=== PATIENT | female | born 1935 | race Caucasian/White ===

== ENCOUNTER 2017-03-04 14:31 | Emergency (ER) | payer MEDICARE, OTHER ==
--- NOTE | 2017-03-04 14:47 | ED ---
General Adult HPI - General Source: RN notes reviewed, old records reviewed <Marcus Serna - Last Filed: 03/04/17 16:19> <Spencer Bhakta - Last Filed: 03/04/17 18:15> - General Stated complaint: Poss UTI Time Seen by Provider: 03/04/17 14:34 - History of Present Illness Initial comments: This is a 81-year-old female to the ER for evaluation regarding weakness. Patient's poor historian secondary to underlying dementia. Patient coming in for weakness and decreased activity level. Patient's coming from adult foster care. Patient is being treated for urinary tract infection. Family states patient was initially improving, she has no recent change in medications, patient's symptoms and began to progress to the worse, patient has no nausea vomiting or diarrhea. No fevers (Marcus Serna) - Related Data Home Medications Medication Instructions Recorded Confirmed Cholecalciferol [Vitamin D3] 2,000 unit PO DAILY@1630 06/04/14 03/04/17 Levothyroxine Sodium [Synthroid] 75 mcg PO MOTUTHFRSA@0800 06/04/14 03/04/17 amLODIPine [Norvasc] 5 mg PO DAILY@0800 06/04/14 03/04/17 Amoxicillin 500 mg PO BID@0800,1630 03/04/17 03/04/17 Hydrocortisone [Cortef] 10 mg PO BID@0800,1630 03/04/17 03/04/17 L.acidoph,Paracasei, B.lactis 1 cap PO DAILY@0800 03/04/17 03/04/17 [Probiotic] LORazepam [Ativan] 0.5 mg PO TID PRN 03/04/17 03/04/17 Levothyroxine Sodium [Synthroid] 150 mcg PO SUWE@0800 03/04/17 03/04/17 Allergies Allergy/AdvReac Type Severity Reaction Status Date / Time codeine Allergy Unknown Verified 03/04/17 15:01 Childhood Milk Containing Products Allergy Unknown Verified 03/04/17 15:01 [Dairy] Review of Systems ROS Other: All systems not noted in ROS Statement are negative. <Marcus Serna - Last Filed: 03/04/17 16:19> ROS Other: All systems not noted in ROS Statement are negative. <Spencer Bhakta - Last Filed: 03/04/17 18:15> ROS Statement: Those systems with pertinent positive or pertinent negative responses have been documented in the HPI. Past Medical History Past Medical History: Cancer, Dementia, Osteoarthritis (OA), Renal Disease, Thyroid Disorder Additional Past Medical History / Comment(s): pituitary gland tumor, short term memory loss, bowel tumor. blindness rt eye, carlotta grindstone, diverticulitis, colon ca, incont of urine, History of Any Multi-Drug Resistant Organisms: None Reported Past Surgical History: Appendectomy, Bowel Resection, Tonsillectomy Additional Past Surgical History / Comment(s): bowel resection d/r cancer, carlotta shoulder sx Past Anesthesia/Blood Transfusion Reactions: No Reported Reaction Past Psychological History: No Psychological Hx Reported Smoking Status: Former smoker Past Alcohol Use History: Rare Additional Past Alcohol Use History / Comment(s): quit in Past Drug Use History: None Reported - Past Family History Father Family Medical History: Cancer Mother Family Medical History: Cancer Sister(s) Family Medical History: Cancer (Breast) <Marcus Serna - Last Filed: 03/04/17 16:19> General Exam General appearance: alert, in no apparent distress Head exam: Present: atraumatic, normocephalic, normal inspection Eye exam: Present: normal appearance, PERRL, EOMI. Absent: scleral icterus, conjunctival injection, periorbital swelling ENT exam: Present: normal exam, mucous membranes moist Neck exam: Present: normal inspection. Absent: tenderness, meningismus, lymphadenopathy Respiratory exam: Present: normal lung sounds bilaterally. Absent: respiratory distress, wheezes, rales, rhonchi, stridor Cardiovascular Exam: Present: regular rate, normal rhythm, normal heart sounds. Absent: systolic murmur, diastolic murmur, rubs, gallop, clicks GI/Abdominal exam: Present: soft, normal bowel sounds. Absent: distended, tenderness, guarding, rebound, rigid Extremities exam: Present: normal inspection, full ROM, normal capillary refill. Absent: tenderness, pedal edema, joint swelling, calf tenderness Back exam: Present: normal inspection Neurological exam: Present: alert, oriented X3, CN II-XII intact Psychiatric exam: Present: normal affect, normal mood Skin exam: Present: warm, dry, intact, normal color. Absent: rash <Marcus Serna - Last Filed: 03/04/17 16:19> Course <Marcus Serna - Last Filed: 03/04/17 16:19> <Spencer Bhakta - Last Filed: 03/04/17 18:15> Vital Signs 03/04/17 03/04/17 03/04/17 14:35 15:45 16:32 Temperature 99.3 F 98.6 F Pulse Rate 90 90 89 Respiratory 16 16 16 Rate Blood Pressure 141/65 128/69 159/74 O2 Sat by Pulse 98 97 97 Oximetry - Reevaluation(s) Reevaluation #1: 03/04/17 16:20 Patient's medical records for further review (Marcus Serna) EKG Findings - EKG Comments: EKG Findings:: EKG shows normal sinus rhythm rate of 89, TN 144, QRS 74, QTc 467 <Marcus Serna - Last Filed: 03/04/17 16:19> Medical Decision Making - Lab Data Result diagrams: 03/04/17 15:09 03/04/17 15:09 <Marcus Serna - Last Filed: 03/04/17 16:19> - Lab Data Result diagrams: 03/04/17 15:09 03/04/17 15:09 - Radiology Data Radiology results: report reviewed (I did review the imaging and reports no acute findings.), image reviewed <Spencer Bhakta - Last Filed: 03/04/17 18:15> - Medical Decision Making I did discuss findings with the patient family members or present was able ambulate with assistance she did need to be directed on what to do with respect to standing and sitting however. After discussion with the family patient be returned to the [facility] home. X-rays and labs are within normal limits (Spencer Bhakta) - Lab Data Lab Results 03/04/17 03/04/17 03/04/17 Range/Units 15:09 15:09 15:09 WBC 8.2 (3.8-10.6) k/uL RBC 4.65 (3.80-5.40) m/uL Hgb 13.4 (11.4-16.0) gm/dL Hct 40.5 (34.0-46.0) % MCV 87.2 (80.0-100.0) fL MCH 28.9 (25.0-35.0) pg MCHC 33.2 (31.0-37.0) g/dL RDW 13.5 (11.5-15.5) % Plt Count 332 (150-450) k/uL Neutrophils % 68 % Lymphocytes % 22 % Monocytes % 5 % Eosinophils % 2 % Basophils % 1 % Neutrophils # 5.6 (1.3-7.7) k/uL Lymphocytes # 1.8 (1.0-4.8) k/uL Monocytes # 0.4 (0-1.0) k/uL Eosinophils # 0.2 (0-0.7) k/uL Basophils # 0.1 (0-0.2) k/uL Sodium 140 (137-145) mmol/L Potassium 3.9 (3.5-5.1) mmol/L Chloride 106 (98-107) mmol/L Carbon Dioxide 26 (22-30) mmol/L Anion Gap 8 mmol/L BUN 11 (7-17) mg/dL Creatinine 0.91 (0.52-1.04) mg/dL Est GFR (MDRD) Af Amer >60 (>60 ml/min/1.73 sqM) Est GFR (MDRD) Non-Af 59 (>60 ml/min/1.73 sqM) Glucose 129 H (74-99) mg/dL Calcium 9.2 (8.4-10.2) mg/dL Phosphorus 4.0 (2.5-4.5) mg/dL Magnesium 2.0 (1.6-2.3) mg/dL Total Bilirubin 0.3 (0.2-1.3) mg/dL AST 32 (14-36) U/L ALT 46 (9-52) U/L Alkaline Phosphatase 71 (38-126) U/L Total Creatine Kinase 70 (30-135) U/L CK-MB (CK-2) 1.2 (0.0-2.4) ng/mL CK-MB (CK-2) Rel Index 1.7 Troponin I <0.012 (0.000-0.034) ng/mL Total Protein 6.6 (6.3-8.2) g/dL Albumin 3.9 (3.5-5.0) g/dL TSH 0.108 L (0.465-4.680) mIU/L Urine Color Urine Appearance (Clear) Urine pH (5.0-8.0) Ur Specific [place] (1.001-1.035) Urine Protein (Negative) Urine Glucose (UA) (Negative) Urine Ketones (Negative) Urine Blood (Negative) Urine Nitrite (Negative) Urine Bilirubin (Negative) Urine Urobilinogen (<2.0) mg/dL Ur Leukocyte Esterase (Negative) Influenza Type A RNA (Not Detectd) Influenza Type B (PCR) (Not Detectd) 03/04/17 03/04/17 Range/Units 15:18 16:30 WBC (3.8-10.6) k/uL RBC (3.80-5.40) m/uL Hgb (11.4-16.0) gm/dL Hct (34.0-46.0) % MCV (80.0-100.0) fL MCH (25.0-35.0) pg MCHC (31.0-37.0) g/dL RDW (11.5-15.5) % Plt Count (150-450) k/uL Neutrophils % % Lymphocytes % % Monocytes % % Eosinophils % % Basophils % % Neutrophils # (1.3-7.7) k/uL Lymphocytes # (1.0-4.8) k/uL Monocytes # (0-1.0) k/uL Eosinophils # (0-0.7) k/uL Basophils # (0-0.2) k/uL Sodium (137-145) mmol/L Potassium (3.5-5.1) mmol/L Chloride (98-107) mmol/L Carbon Dioxide (22-30) mmol/L Anion Gap mmol/L BUN (7-17) mg/dL Creatinine (0.52-1.04) mg/dL Est GFR (MDRD) Af Amer (>60 ml/min/1.73 sqM) Est GFR (MDRD) Non-Af (>60 ml/min/1.73 sqM) Glucose (74-99) mg/dL Calcium (8.4-10.2) mg/dL Phosphorus (2.5-4.5) mg/dL Magnesium (1.6-2.3) mg/dL Total Bilirubin (0.2-1.3) mg/dL AST (14-36) U/L ALT (9-52) U/L Alkaline Phosphatase (38-126) U/L Total Creatine Kinase (30-135) U/L CK-MB (CK-2) (0.0-2.4) ng/mL CK-MB (CK-2) Rel Index Troponin I (0.000-0.034) ng/mL Total Protein (6.3-8.2) g/dL Albumin (3.5-5.0) g/dL TSH (0.465-4.680) mIU/L Urine Color Yellow Urine Appearance Clear (Clear) Urine pH 5.5 (5.0-8.0) Ur Specific [place] 1.013 (1.001-1.035) Urine Protein Negative (Negative) Urine Glucose (UA) Negative (Negative) Urine Ketones Negative (Negative) Urine Blood Negative (Negative) Urine Nitrite Negative (Negative) Urine Bilirubin Negative (Negative) Urine Urobilinogen <2.0 (<2.0) mg/dL Ur Leukocyte Esterase Negative (Negative) Influenza Type A RNA Not Detected (Not Detectd) Influenza Type B (PCR) Not Detected (Not Detectd) Disposition <Marcus Serna - Last Filed: 03/04/17 16:19> <Spencer Bhakta - Last Filed: 03/04/17 18:15> Clinical Impression: Dementia Disposition: HOME SELF-CARE Condition: Good Instructions: Dementia (ED) Referrals: Kat Meraz MD [Primary Care Provider] - 1-2 days
[2017-03-04] MEDS ORDERED: SODIUM CHLORIDE 0.9% 500 ML IV STA (14:56)
[2017-03-04] MEDS ORDERED: SODIUM CHLORIDE 0.9% 1,000 ML IV STA (14:56)
[2017-03-04 15:16] VITALS: RESP 16
[2017-03-04 15:23] LABS: Basophils # (A) 0.1 k/uL (0-0.2); Basophils % (A) 1 %; CH 29.5; Eosinophils # (A) 0.2 k/uL (0-0.7); Eosinophils % (A) 2 %; HCT 40.5 % (34.0-46.0); HDW 2.65; HGB 13.4 gm/dL (11.4-16.0); Luc # (Auto) 0.17; Luc % (Auto) 2; Lymphocytes # (A) 1.8 k/uL (1.0-4.8); Lymphocytes % (A) 22 %; MCH 28.9 pg (25.0-35.0); MCHC 33.2 g/dL (31.0-37.0); MCV 87.2 fL (80.0-100.0); Mean Platelet Volume 7.1; Monocytes # (A) 0.4 k/uL (0-1.0); Monocytes % (A) 5 %; Neutrophils # (A) 5.6 k/uL (1.3-7.7); Neutrophils % (A) 68 %; RBC 4.65 m/uL (3.80-5.40); RDW 13.5 % (11.5-15.5); WBC 8.2 k/uL (3.8-10.6); WBC (Perox) 8.22
[2017-03-04 15:32] LABS: ALT 46 U/L (9-52); AST 32 U/L (14-36); Alkaline Phosphatase 71 U/L (38-126); Anion Gap 8 mmol/L; Blood Urea Nitrogen 11 mg/dL (7-17); Calcium 9.2 mg/dL (8.4-10.2); Carbon Dioxide 26 mmol/L (22-30); Chloride 106 mmol/L (98-107); Glucose 129 mg/dL (74-99); Non-African American GFR(MDRD) 59 (>60 ml/min/1.73 sqM); Potassium 3.9 mmol/L (3.5-5.1); Sodium 140 mmol/L (137-145); Total Bilirubin 0.3 mg/dL (0.2-1.3); Total Protein 6.6 g/dL (6.3-8.2)
[2017-03-04 15:41] LABS: Creatine Kinase 70 U/L (30-135)
[2017-03-04 15:53] LABS: Creatine Kinase MB 1.2 ng/mL (0.0-2.4); Troponin I <0.012 ng/mL (0.000-0.034)
--- NOTE | 2017-03-04 16:01 | XR ---
EXAMINATION TYPE: XR chest 2V DATE OF EXAM: 03/04/2017 COMPARISON: 12/21/2012 HISTORY: 81-year-old female with weakness TECHNIQUE: PA and lateral views FINDINGS: The cardiomediastinal silhouette, aorta, and pulmonary vasculature are within normal limits. Mild int erstitial prominence is stable, likely chronic senescent change. Otherwise, lungs and pleural spaces are clear. Surgical changes of the right shoulder. IMPRESSION: Chronic changes without acute cardiopulmonary process.
[2017-03-04 16:34] VITALS: BP 159/74; PULSE 89; TEMP 98.6
[2017-03-04 16:46] LABS: Appearance,Urine Clear (Clear); Bilirubin,Urine Negative (Negative); Glucose,Urine (UA) Negative (Negative); Ketones,Urine Negative (Negative); Leukocyte Esterase,Urine Negative (Negative); Nitrite,Urine Negative (Negative); PH, Urine 5.5 (5.0-8.0); Protein,Urine Negative (Negative); Specific Gravity,Urine 1.013 (1.001-1.035); UA Billing (MACRO vs. MICRO) CHEM; Urobilinogen,Urine <2.0 mg/dL (<2.0)
--- NOTE | 2017-03-04 17:16 | CT ---
EXAMINATION TYPE: CT brain wo con DATE OF EXAM: 03/04/2017 COMPARISON: MRI 01/27/2011 HISTORY: 81-year-old female with a pain, confusion, altered mental status. TECHNIQUE: Examination was done in axial plane without intravenous contrast. Coronal and sagittal r econstructions performed. CT DLP: 809.2 mGycm Automated exposure control for dose reduction was used. FINDINGS: There is no evidence of acute intracranial hemorrhage, acute ischemic changes, mass, mass-effect, or extra-axial fluid collection. There is no effacement of cerebral sulci or basal subarachnoid cister ns. Chanel ratio is calculated at 0.39. There is mild ventriculomegaly and moderate cerebral cortical volu me loss. There is no midline shift. Amaro-white matter distinction is preserved. Mild periventricular white matter hypodensities likely relate to chronic small vessel ischemic diseas e. Suggestion of prior resection changes in the sella. Frothy air-fluid level left sphenoid sinus. Mastoid air cells well pneumatized. Patient's gaze appears divergent suggesting underlying strabismus. IMPRESSION: 1. No acute intracranial abnormality seen. 2. Moderate atrophy. Similar mild ventriculomegaly probably due to central cerebral volume loss. Jd elate to exclude a component of NPH. 3. Frothy air-fluid level in the left sphenoid sinus can be seen with acute viral sinusitis.
== END 2017-03-04 18:30 | disposition home or self-care (01) ==
LOC: EEVIPCON 14:31 → EC 14:31
DX: F03.90 Unspecified dementia, unspecified severity, without behavioral disturbance, psychotic disturbance, mood disturbance, and anxiety (principal); N39.0 Urinary tract infection, site not specified; R53.1 Weakness; E07.9 Disorder of thyroid, unspecified; H54.40 Blindness, one eye, unspecified eye; Z87.891 Personal history of nicotine dependence; Z79.52 Long term (current) use of systemic steroids; Z79.899 Other long term (current) drug therapy; Z88.5 Allergy status to narcotic agent; Z91.011 Allergy to milk products
CPT/HCPCS: 36415; 70450; 71020; 80053; 81003; 82550; 82553; 83735; 84100; 84443; 84484; 85025; 87086; 87502; 93005; 96360; 99285